=== PATIENT | female | born 1960 | race Caucasian/White ===

== ENCOUNTER → 2018-01-27 | Outpatient (CLI) | payer OTHER ==
[~2018-01-27] MED LIST: ADAL20KI2 SQ; CEP500 PO; CEPH500T7 PO; CIP500 PO; CIPR-344 PO; CIPR100T4 PO; CIPR250S2 PO; FAM20 PO; FAMO20TA28 PO; FEN145 PO; FENO48PT PO; FES4PT PO; FEXO180T74 PO; FEXO30TA36 PO; FLUO-201 PO; FLUO-202 PO; FOLI-68 PO; FOLTX PO; FURO40TA35 PO; GABA-490 PO; HYDR-385 PO; HYDR-389 PO; IBU600 PO; IBU800 PO; IBUP-1671 PO; LEVO200T44 PO; LEVO25TA56 PO; LEVO25TA61 PO; LEVO5PT PO; LOPE2CAP39 PO; LOR5/325 PO; MESA400T PO; METF-409 PO; METF-415 PO; METF10002 PO; METH2.5T43 PO; NOR25 PO; NORT50CA40 PO; OMEG-44 PO; OMEP-114 PO; OXY5 PO; OXYB10TA21 PO; OXYB5TAB86 PO; OXYC-717 PO; PAR20 PO; PAROX40PT PO; PHEN200T32 PO; PHENA200 PO; PRA20 PO; PRE5 PO; PRED20TA6 PO; SITA100T PO; SPIR1TAB28 PO; TRA50 PO
== END ==
LOC: SPU 15:39
DX: N30.01 Acute cystitis with hematuria (principal)
CPT/HCPCS: 51701

== ENCOUNTER 2018-02-03 00:52 | Inpatient (IN) | payer OTHER ==
[2018-02-02 14:55] LABS: INR 0.99
--- NOTE | 2018-02-02 16:34 | RADIOLOGY IMAGING REPORT ---
FACILITY: [facility] PATIENT NAME: Tessa Ellison : 1960 MR: [id number] V: [id number] EXAM DATE: ORDERING PHYSICIAN: HEBER GAYLE TECHNOLOGIST: Location: [facility] [place] Patient: Tessa Ellison : 1960 Visit/Account:[id number] Date of Sevice: 02/02/2018 Examination: Leg length. HISTORY: Preoperative evaluation for knee arthroplasty. COMPARISON: None. FINDINGS: The right lower extremity measures 87.9 cm with a right femur length of 46.9 cm and a right tibial le ngth of 40.4 cm. The left lower extremity measures 88.6 cm with a left femur length of 46.9 cm and a left tibial lengt h of 40.8 cm. There is medial compartment greater than lateral compartment osteoarthritis of both knees. IMPRESSION: 1. Leg lengths as above. Report Dictated By: Rome Riggins at 02/02/2018 4:22 PM Report E-Signed By: Rome Riggins at 02/02/2018 4:30 PM WSN:[id number]
[~2018-02-03] VITALS: Ht 172.7 cm; Wt 132.0 kg
[2018-02-03] VITALS (15 sets, daily range): BP systolic 105–150; BP diastolic 61–98
[2018-02-03] MEDS ORDERED: SCOPOLAMINE 1.5 MG PATCH TD ONE (05:30)
[2018-02-03] MEDS ORDERED: METH1TAB40 PO (05:45)
[2018-02-03] MEDS ORDERED: CEPH-13 PO (05:45)
[2018-02-03] MEDS ORDERED: HYDROCORTISONE 100 MG/2 ML IVP ONE (06:00)
[2018-02-03] MEDS ORDERED: cloNIDine EPIDUR INJ 100MCG/ML 40 MCG, ROPIVACAINE 0.5% 20 ML VIAL 25 ML, EPINEPHrine H... INJ ONE (06:15)
[2018-02-03] MEDS ORDERED: ACETAMINOPHEN 500 MG TAB PO ONE (06:15)
[2018-02-03] MEDS ORDERED: PREGABALIN 150 MG CAPSULE PO ONE (06:15)
[2018-02-03] MEDS ORDERED: TRANEXAMIC AC 1000 MG/10ML SDV 1,000 MG in DEXTROSE 5% 50 ML BAG 50 ML IV ONE (06:15)
[2018-02-03] MEDS ORDERED: LIDOCAINE/SOD BICARB 8.4% SYR ID ONE (06:15)
[2018-02-03] MEDS ORDERED: NORMOSOL R SOLN(*) 1000 ML BAG 1,000 ML IV PRN (06:15)
[2018-02-03] MEDS ORDERED: VANCOMYCIN(*) 1 GM VIAL 2 GM in NS(*) 0.9% 250 ML BAG 250 ML IVPB ONE (06:15)
[2018-02-03] MEDS ORDERED: CELECOXIB 200 MG CAP PO ONE (06:15)
[2018-02-03] MEDS ORDERED: MIDAZOLAM 2 MG/2 ML VIAL IVP PRN (06:15)
[2018-02-03] MEDS ORDERED: LIDOCAINE 2% IV 100 MG/5ML SYR ONE (07:07)
[2018-02-03] MEDS ORDERED: fentaNYL CITR 100 MCG/2 ML AMP ONE ×2 (07:07→08:41)
[2018-02-03] MEDS ORDERED: PROPOFOL EMUL(*) 10MG/ML 20 ML 20 ML ONE (07:08)
[2018-02-03] MEDS ORDERED: BUPIVACAINE 0.5% INJ 50ML VIAL INFIL ONE (07:30)
[2018-02-03] MEDS ORDERED: ONDANSETRON 4 MG/2 ML VIAL ONE (07:35)
[2018-02-03] MEDS ORDERED: DEXAMETHASONE SOD PHOS 10MG/ML ONE (07:35)
[2018-02-03] MEDS ORDERED: LABETALOL HCL 100 MG/20ML VIAL ONE (10:08)
[2018-02-03] MEDS ORDERED: ACETAMINOPHEN 500 MG TAB PO PRN (10:20)
[2018-02-03] MEDS ORDERED: KCL/D5LR 20 MEQ/1000 ML PREMIX 1,000 ML IV PRN (10:20)
[2018-02-03] MEDS ORDERED: diphenhydrAMINE 25 MG CAP PO PRN (10:20)
[2018-02-03] MEDS ORDERED: ONDANSETRON 4 MG/2 ML VIAL IVP PRN (10:20)
[2018-02-03] MEDS ORDERED: MORPHINE SULFATE 30 MG PCA IV PRN (10:20)
[2018-02-03] MEDS ORDERED: FLUSH 10 ML SYR IVP PRN (10:20)
[2018-02-03] MEDS ORDERED: PROMETHAZINE 25 MG/ML 1 ML AMP IVP PRN (10:20)
[2018-02-03] MEDS ORDERED: NALOXONE HCL 0.4 MG/ML VIAL IVP PRN (10:20)
[2018-02-03] MEDS ORDERED: MAGNESIUM CITRATE 300 ML BTL PO PRN (10:20)
--- NOTE | 2018-02-03 10:39 | RADIOLOGY IMAGING REPORT ---
FACILITY: [facility] [place] PATIENT NAME: Tessa Ellison : 1960 MR: [id number] V: [id number] EXAM DATE: ORDERING PHYSICIAN: HEBER GAYLE TECHNOLOGIST: Location: [facility] Patient: Tessa Ellison : 1960 Visit/Account:[id number] Date of Sevice: 02/03/2018 Left knee Indication: Total knee arthroplasty Comparison: MRI of the left knee from February 2007 Findings: Two views left knee demonstrate expected appearance status post left total knee arthroplasty. Compon ents are well seated and aligned appropriately. IMPRESSION: 1. Expected appearance status post left total knee arthroplasty. Report Dictated By: Casimiro Obrien MD at 02/03/2018 10:33 AM Report E-Signed By: Casimiro Obrien MD at 02/03/2018 10:34 AM WSN:[id number]
--- NOTE | 2018-02-03 12:48 | Hospitalist Consultation ---
History of Present Illness Requesting Physician Dr. Salcido Reason for Consult Medical Management Chief Complaint s/p right total knee replacement History of Present Illness She was admitted s/p right total knee replacement. It is reported the surgery went well and without complication. History Problems: (1) Lupus Status: Chronic (2) Rheumatoid arthritis Status: Chronic (3) Depression Status: Chronic (4) Hypothyroidism Status: Chronic Home Meds Reported Medications Cephalexin (KEFLEX) 500 Mg Capsule, 500 MG PO BID, #28 CAP 02/03/18 Methenam/Me Blue/Ba/Salicy/Hyo (HYOPHEN TABLET) 1 Each Tablet, 1 EACH PO PRN 02/03/18 Oxybutynin Chloride (DITROPAN XL) 10 Mg Tab.er.24, 15 MG PO QDAY, TAB 01/26/18 Prednisone 5 Mg Tab (PREDNISONE 5 MG TAB) 5 Mg Tablet, 5 MG PO QDAY, TAB 01/26/18 Fluoxetine Hcl (PROZAC) 20 Mg Capsule, 20 MG PO QDAY, CAPSULE 01/26/18 Sitagliptin Phosphate (JANUVIA) 100 Mg Tablet, 100 MG PO QDAY 01/26/18 Nortriptyline Hcl (NORTRIPTYLINE HCL) 50 Mg Capsule, 50 MG PO HS, CAPSULE 02/10/17 Adalimumab (HUMIRA) 20 Mg/0.4 Ml Kit, 20 MG SQ 2X/MONTH, KIT 02/10/17 Methotrexate Sodium (METHOTREXATE) 2.5 Mg Tablet, 10 TAB PO ONCE/WEEK ON Fridays02/10/17 Gabapentin (NEURONTIN) 300 Mg Capsule, 900 MG PO HS, CAPSULE 03/27/15 Levothyroxine Sodium (LEVOTHYROXINE SODIUM) 25 Mcg Tablet, 25 MCG PO QDAY 03/27/15 Discontinued Reported Medications Omeprazole (PRILOSEC) 20 Mg Capsule.dr, 1 TAB PO DAILY TAKE ONE TABLET BY MOUTH ONCE A DAY 12/19/14 Allergies: Coded Allergies: Wheat Flour (Verified Allergy, Intermediate, NAUSEA/VOMITING, 01/26/18) pollen extracts (Verified Allergy, Intermediate, ITCHING WITH EYES, ) meperidine (Verified Adverse Reaction, Severe, NAUSEA/VOMITING, 01/26/18) Uncoded Allergies: GENTAMYCIN (Allergy, Intermediate, WELTS, 02/02/18) Hx Smoking: No Smoking Status: Never Smoker Caffeine/Cups Per Day: NONE CURRENTLY Hx Alcohol Use: No Hx Substance Use Disorder: No Social Drug Use: Never History of IV Drug Use: No Review of Systems All Systems Reviewed/Normal: Yes, Except as Noted Exam Vital Signs Vital Signs Date Time Temp Pulse Resp B/P (MAP) Pulse Ox O2 Delivery O2 Flow Rate FiO2 02/03/18 12:00 93 121/88 (99) 94 02/03/18 11:16 Nasal Cannula 3.0 02/03/18 11:08 98.3 18 General Appearance: Alert, Awake, No Acute Distress, Afebrile Neuro: No Gross deficits Cardiovascular: Regular Rate and Rhythm Respiratory: No Respiratory Distress, Clear to Auscultation GI: Abd Soft and Non-Tender Psych: Alert & Oriented X3, Appropriate Mood & Affect Medical Decision Making Data Points Result Diagram: 02/03/18 1051 Assessment and Plan Problems: (1) Status post total right knee replacement Status: Acute Assessment & Plan: Followed by Dr. Salcido. (2) Lupus Status: Chronic Assessment & Plan: She is on chronic treatment with Humira and prednisone. Prednisone will be restarted tomorrow. We will stress dose the patient today with hydrocortisone for three doses and then restart her Prednisone. (3) Rheumatoid arthritis Status: Chronic Assessment & Plan: She is on chronic treatment with Methotrexate. This will be held until full healing from her surgery. (4) Hypothyroidism Status: Chronic Assessment & Plan: She is on chronic treatment with Levothyroxine. (5) Depression Status: Chronic Assessment & Plan: She is on chronic treatment with Prozac and Nortriptyline. (6) Elevated glucose Assessment & Plan: She is on chronic treatment with Januvia. (7) BMI 40.0-44.9, adult Venous Thromboembolism Antithrombotics Is Pt On Any Antithrombotics?: No Exam Sepsis Risk: No Definite Risk BILLY GARCIA [facility] Feb 03, 2018 12:48
[2018-02-03] MEDS: HYDROCORTISONE 100 MG/2 ML IVP SCH (16:39)
[2018-02-03] MEDS: NORTRIPTYLINE HCL 25 MG CAP PO SCH (20:40)
[2018-02-03] MEDS: GABAPENTIN 300 MG CAP PO SCH (20:40)
[2018-02-03] MEDS ORDERED: INSULIN HUM LISPRO 100 UN/ML 3 ML VIAL SUBQ PRN (23:40)
[2018-02-04] MEDS: HYDROCORTISONE 100 MG/2 ML IVP SCH ×2 (01:05→08:50)
[2018-02-04 04:15] VITALS: BP 125/79
[2018-02-04 05:38] LABS: PLATELET COUNT, AUTOMATED 297 K/uL (150-450)
--- NOTE | 2018-02-04 08:02 | OPERATIVE REPORT 1 ---
EVENT DATE: February 03, 2018 SURGEON: Alfred Salcido M.D. ANESTHESIOLOGIST: Cyrus Gallagher M.D. ANESTHESIA: Spinal plus general office assistant: Sai Beasley PA-C PREOPERATIVE DIAGNOSIS Left knee degenerative joint disease (DJD). POSTOPERATIVE DIAGNOSIS Left knee degenerative joint disease (DJD). PROCEDURE PERFORMED Left total knee arthroplasty. ESTIMATED BLOOD LOSS 50 IVF, 1800 of crystalloid, no colloid. SPECIMENS None. COMPLICATIONS None. TOURNIQUET TIME 79 at 300. IMPLANTS USED DePuy Attune 7 PS femur at 6 degrees with six RP tibia with a 6 mm RP insert and 35 anatomic patella. DESCRIPTION OF PROCEDURE The patient was brought to the operating room. She was placed on the OR table seated and Dr. Gallagher undertook a spinal anesthetic. He elected not to use any morphine so the synergistic effect would not be too great to prevent ambulation today. It was quite challenging to get into the spine in this particular case and, therefore, our start time was delayed a bit on account of this but Dr. Gallagher was able to get a good spinal effect. We then prepped and draped in a standard fashion. The limb was exsanguinated and the tourniquet was inflated to 300 mmHg. A utilitarian and anterior incision was made deep into skin and subcutaneous tissue. This was followed by medial peripatellar approach. The fluid was clear. We dissected soft tissues away from the anterior femur as well as removing the ACL and patellofemoral ligament. We removed the menisci. We obtained intramedullary guidance and then set up for a 6 degree cut, removing 9 mm off the end of the femur. This was accomplished and we measured to 7. We then did the rest of the chamfer cuts and removed this tissue. She was quite tight. It was difficult to get the gauge in to see if it would fit well but it looked like the femoral cuts were properly parallel and , therefore, we did put the trial on. It seated and, therefore, we drilled the lugs. We had also done the notch cut. We now moved to the tibia. Again, intramedullary guidance was obtained and I cut 2 mm below the deficient medial side, which was about 9 mm below the articular surface laterally. It turns out that this was insufficient in terms of the amount of bone removed because after trialing with a size 6 it was a bit too tight. We dropped down 2 mm, tried again with the flexion and extension block and it was still tight both in extension and flexion so we went down a total of an additional 4 mm on the tibia and at that point we were able to get the [address] I extended. At first, she settled in at about 15 degrees of flexion contracture but when I pushed on it a little bit the posterior capsule contracture and then we were able to get her locked into nice extension. She had good stability medial and lateral at 0 degrees and at 20 degrees. We then proceeded with the rest of the preparation. A small drill was used to fenestrate the bone where it was eburnated. We mixed cement, opened implants and then proceeded with the tibia, followed by the femur, the trial insert and then the patella. The patella had previously been prepped in standard fashion by using a gauge to measure the total thickness, which was 22. I cut a little less than the 9.5 off that we normally would, leaving her with 14 mm of patella. She fit well with a 35. We drilled the lug holes and at this point in the cementation process the patella was the last one to be cemented. Excess cement was removed from all surfaces. She was held locked and loaded during polymerization of the cement and upon completion we ranged her and checked her function again. The 5 mm x 7 insert actually fit fairly well. However, in mid flexion there was just a little bit of play, a bit more than the 1-2 mm we would like to see. Consequently, I trialed a 6 and she still had full extension and it fit quite well. We opened a 6 and implanted that. The wound was irrigated again as it had been throughout the case. We had also used the cement spacer blocks that went into the femur and the tibia to allow for better compression on the cement mantle. With the tourniquet deflated, bipolar cautery was used for hemostasis. We administered the second dose of TXA on tourniquet deflation. We then closed with #1 Vicryl for the capsule, 3-0 Vicryl for the subcutaneous tissue, 4-0 Monocryl for the subcuticular layer and the Dermabond strip was applied. She was given a dry, sterile compression dressing , awakened and transferred to the recovery room in stable condition. JANE
[2018-02-04] MEDS: ASPIRIN 325 MG TAB PO SCH (08:46)
[2018-02-04] MEDS: FLUoxetine HCL 20 MG CAP PO SCH (08:46)
[2018-02-04] MEDS: LEVOTHYROXINE SOD 0.025 MG TAB PO SCH (08:46)
[2018-02-04] MEDS: predniSONE 5 MG TAB PO SCH (08:46)
--- NOTE | 2018-02-04 10:39 | Hospitalist Progress Note ---
Subjective Progress Notes Subjective No cp/sob. Physical Exam Vital Signs Date Time Temp Pulse Resp B/P (MAP) Pulse Ox O2 Delivery O2 Flow Rate FiO2 02/04/18 08:08 97 Nasal Cannula 3.0 02/04/18 04:15 98.6 95 16 125/79 (94) Intake and Output 02/05/18 06:59 Intake Total 120 ml Balance 120 ml Intake Oral 120 ml General Appearance: Alert, Awake, No Acute Distress Result Diagram: 02/04/18 0526 Assessment and Plan Problems: (1) Status post total right knee replacement Status: Acute Assessment & Plan: Followed by Dr. Salcido. (2) Lupus Status: Chronic Assessment & Plan: She is on chronic treatment with Humira and prednisone. Prednisone restarted. She was stress dosed with hydrocortisone for three doses after surgery. (3) Rheumatoid arthritis Status: Chronic Assessment & Plan: She is on chronic treatment with Methotrexate. This will be held until full healing from her surgery. (4) Hypothyroidism Status: Chronic Assessment & Plan: She is on chronic treatment with Levothyroxine. (5) Depression Status: Chronic Assessment & Plan: She is on chronic treatment with Prozac and Nortriptyline. (6) Elevated glucose Assessment & Plan: She is on chronic treatment with Januvia. (7) BMI 40.0-44.9, adult Exam Sepsis Risk: No Definite Risk SAM NOGUERA MD Feb 04, 2018 10:39
[2018-02-04] MEDS: CEPHALEXIN MONO 500 MG CAP PO SCH ×2 (10:53→20:51)
[2018-02-04 13:17] VITALS: Ht 172.7 cm; Wt 132.0 kg
[2018-02-04 14:53] VITALS: BP 144/92
[2018-02-04] MEDS: GABAPENTIN 300 MG CAP PO SCH (20:52)
[2018-02-04] MEDS: NORTRIPTYLINE HCL 25 MG CAP PO SCH (20:52)
[2018-02-05 03:44] VITALS: BP 114/73
[2018-02-05 08:17] LABS: PLATELET COUNT, AUTOMATED 250 K/uL (150-450)
[2018-02-05] MEDS: ASPIRIN 325 MG TAB PO SCH (08:38)
[2018-02-05] MEDS: LEVOTHYROXINE SOD 0.025 MG TAB PO SCH (08:38)
[2018-02-05] MEDS: predniSONE 5 MG TAB PO SCH (08:38)
[2018-02-05] MEDS: CEPHALEXIN MONO 500 MG CAP PO SCH (08:38)
[2018-02-05] MEDS: FLUoxetine HCL 20 MG CAP PO SCH (08:39)
[2018-02-05 08:45] VITALS: BP 124/84
[2018-02-05] MEDS ORDERED: OXYC5TAB38 PO (09:29)
--- NOTE | 2018-02-05 09:54 | Hospitalist Progress Note ---
Subjective Progress Notes Subjective The patient had some diarrhea this am. She feels fine and would like to go home. Physical Exam Vital Signs Date Time Temp Pulse Resp B/P (MAP) Pulse Ox O2 Delivery O2 Flow Rate FiO2 02/05/18 08:45 97.7 15 124/84 (97) 02/05/18 03:44 87 94 CPAP 3.0 Intake and Output 02/06/18 06:59 Intake Total 240 ml Balance 240 ml Intake Oral 240 ml General Appearance: Alert, Awake, No Acute Distress, Afebrile Neuro: No Gross deficits Cardiovascular: Regular Rate and Rhythm Respiratory: Clear to Auscultation GI: Soft and Non-Tender Extremities: Perfused Psych: Appropriate Mood & Affect Result Diagram: 02/05/18 07502/05/18 075 Assessment and Plan Problems: (1) Status post total right knee replacement Status: Acute Assessment & Plan: Followed by Dr. Salcido. On ASA 325mg daily for DVT prophylaxis. (2) Lupus Status: Chronic Assessment & Plan: She is on chronic treatment with Humira and prednisone. Prednisone restarted. She was stress dosed with hydrocortisone for three doses after surgery. (3) Rheumatoid arthritis Status: Chronic Assessment & Plan: She is on chronic treatment with Methotrexate. This will be held until full healing from her surgery. (4) Hypothyroidism Status: Chronic Assessment & Plan: She is on chronic treatment with Levothyroxine. (5) Depression Status: Chronic Assessment & Plan: She is on chronic treatment with Prozac and Nortriptyline. (6) Elevated glucose Assessment & Plan: She is on chronic treatment with Januvia. (7) BMI 40.0-44.9, adult Status: Chronic Time Spent on Plan of Care: < 30 min Exam Sepsis Risk: No Definite Risk RASHAAD LANZA MD Feb 05, 2018 09:54
[2018-02-05] MEDS ORDERED: ASPI-757 PO (09:55)
== END 2018-02-05 11:30 | disposition home or self-care (01) | DRG 470 ==
LOC: OR 00:52 → MED 11:10
PROVIDERS: ADMIT Orthopaedic Surgery Hand Surgery; ATTEND Orthopaedic Surgery Hand Surgery
PROC: 5A09357 Assistance with Respiratory Ventilation, Less than 24 Consecutive Hours, Continuous Positive Airway Pressure (ICD-10-PCS; 2018-02-03)
PROC: 0SRD0J9 Replacement of Left Knee Joint with Synthetic Substitute, Cemented, Open Approach (ICD-10-PCS; principal; 2018-02-03 07:15)
DX: M17.12 Unilateral primary osteoarthritis, left knee (principal); Z68.41 Body mass index [BMI] 40.0-44.9, adult; M32.9 Systemic lupus erythematosus, unspecified; E66.01 Morbid (severe) obesity due to excess calories; I10 Essential (primary) hypertension; G47.33 Obstructive sleep apnea (adult) (pediatric); E28.2 Polycystic ovarian syndrome; M06.9 Rheumatoid arthritis, unspecified; E11.9 Type 2 diabetes mellitus without complications; F32.9 Major depressive disorder, single episode, unspecified; E03.9 Hypothyroidism, unspecified; Z99.81 Dependence on supplemental oxygen; Z79.84 Long term (current) use of oral hypoglycemic drugs; Z98.1 Arthrodesis status
CPT/HCPCS: 36415; 36416; 77073; 81001; 82310; 82374; 82435; 82565; 82947; 82948; 84132; 84295; 84520; 85014; 85018; 85025; 85610; 86850; 86900; 86901; 87088; 97161; C1713; C1776; J0171; J0735; J1100; J1720; J1885; J2001; J2250; J2405; J2704; J2795; J3010; J3370; J3490; J7050; J7060; J7512

== ENCOUNTER → 2018-03-08 | Outpatient (CLI) | payer OTHER ==
[2018-02-04 13:17] VITALS: BMI 44.2
[~2018-03-08] MED LIST changes: +ASPI-757 PO; +CEPH-13 PO; +METH1TAB40 PO; +OXYC5TAB38 PO
== END ==
LOC: LAB 15:14
PROVIDERS: ATTEND Otolaryngology Otolaryngology/Facial Plastic Surgery
DX: J30.9 Allergic rhinitis, unspecified (principal)
CPT/HCPCS: 36415; 82785; 86003

== ENCOUNTER → 2018-03-31 | Outpatient (CLI) | payer OTHER ==
[2018-02-04 13:17] VITALS: BMI 44.2
== END ==
LOC: LAB 14:31
PROVIDERS: ATTEND Internal Medicine
DX: D72.829 Elevated white blood cell count, unspecified (principal)
CPT/HCPCS: 36415; 85027

== ENCOUNTER 2018-07-07 02:45 | Inpatient (IN) | payer OTHER ==
[2018-07-06 13:59] LABS: INR 0.99
[~2018-07-07] VITALS: Ht 172.7 cm; Wt 131.5 kg
[2018-07-07] MEDS ORDERED: ACETAMINOPHEN 500 MG TAB PO ONE (11:30)
[2018-07-07] MEDS ORDERED: LIDOCAINE/SOD BICARB 8.4% SYR ID ONE (11:30)
[2018-07-07] MEDS ORDERED: ceFAZolin(*) 2GM/D5W 50ML 50 ML IVPB ONE (11:30)
[2018-07-07] MEDS ORDERED: MIDAZOLAM 2 MG/2 ML VIAL IVP PRN (11:30)
[2018-07-07] MEDS ORDERED: cloNIDine EPIDUR INJ 100MCG/ML 40 MCG, ROPIVACAINE 0.5% 20 ML VIAL 25 ML, EPINEPHrine H... INJ ONE (11:30)
[2018-07-07] MEDS ORDERED: CELECOXIB 200 MG CAP PO ONE (11:30)
[2018-07-07] MEDS ORDERED: NORMOSOL R SOLN(*) 1000 ML BAG 1,000 ML IV PRN (11:30)
[2018-07-07] MEDS ORDERED: FAMOTIDINE 20 MG TAB PO ONE (11:30)
[2018-07-07] MEDS ORDERED: PREGABALIN 150 MG CAPSULE PO ONE (11:30)
[2018-07-07] MEDS ORDERED: TRANEXAMIC AC 1000 MG/10ML SDV 1,000 MG in DEXTROSE 5% 50 ML BAG 50 ML IV ONE (11:30)
[2018-07-07 15:30] VITALS: BP 144/89
[2018-07-07] MEDS ORDERED: PHENYLEPHRINE 10 MG/1 ML VIAL ONE (20:08)
[2018-07-07] MEDS ORDERED: ROPIVACAINE 0.5% 20 ML VIAL ONE (20:08)
[2018-07-07] MEDS ORDERED: PROPOFOL EMUL(*) 10MG/ML 20 ML 120 ML ONE (20:08)
[2018-07-07] MEDS ORDERED: MAGNESIUM CITRATE 300 ML BTL PO PRN (20:40)
[2018-07-07] MEDS ORDERED: KCL/D5LR 20 MEQ/1000 ML PREMIX 1,000 ML IV PRN (20:40)
[2018-07-07] MEDS ORDERED: ACETAMINOPHEN 500 MG TAB PO PRN (20:40)
[2018-07-07] MEDS ORDERED: diphenhydrAMINE 25 MG CAP PO PRN (20:40)
[2018-07-07] MEDS ORDERED: ONDANSETRON 4 MG/2 ML VIAL IVP PRN (20:40)
[2018-07-07] MEDS ORDERED: FLUSH 10 ML SYR IVP PRN (20:40)
[2018-07-07] MEDS ORDERED: NALOXONE HCL 0.4 MG/ML VIAL IVP PRN (20:40)
[2018-07-07] MEDS ORDERED: MORPHINE SULFATE 30 MG PCA IV PRN (20:40)
[2018-07-07] MEDS ORDERED: PROMETHAZINE 25 MG/ML 1 ML AMP IVP PRN (20:40)
[2018-07-07 21:35] VITALS: BP 138/83
--- NOTE | 2018-07-07 21:48 | Hospitalist Progress Note ---
Subjective Progress Notes Subjective Patient seen post-op. Reviewed PMHx and medications. At present she reports doing well. Pain well controlled. No CP/SOB/N/V. Physical Exam Vital Signs Date Time Temp Pulse Resp B/P (MAP) Pulse Ox O2 Delivery O2 Flow Rate FiO2 07/07/18 21:15 85 16 93 07/07/18 15:30 98.2 144/89 (107) Room Air General Appearance: Alert, Awake Cardiovascular: Regular Rate and Rhythm Respiratory: Clear to Auscultation Result Diagram: 07/07/182033 Assessment and Plan Problems: (1) Status post left knee replacement Status: Acute Assessment & Plan: She appears to have done well with OR/anesthesia. She has no history of DVT/PE. She will be on aspirin for prophylaxis. (2) Hypothyroidism Status: Chronic Assessment & Plan: Continue replacement with L-thyroxine. (3) Elevated glucose Status: Chronic Assessment & Plan: Will place on ADA diet. Continue Januvia. Watch glucoses and use SSI as needed. (4) Depression Status: Chronic Assessment & Plan: Continue Prozac. (5) Rheumatoid arthritis Status: Chronic Assessment & Plan: She has been managed with Humira, MTX, and low dose prednisone. Will use stress dose Solu-Cortef and then transition back to prednisone. She has held her MTX and Humira for the past two weeks and will hold an additional two weeks post-op. (6) BMI 40.0-44.9, adult Status: Chronic JOSE LANZA MD Jul 07, 2018 21:48
[2018-07-07] MEDS ORDERED: INSULIN HUM LISPRO 100 UN/ML 3 ML VIAL SUBQ PRN (21:50)
[2018-07-07] MEDS ORDERED: HYDROCORTISONE 100 MG/2 ML IVP ONE (21:50)
[2018-07-07 22:15] VITALS: BP 109/72
[2018-07-07 23:00] VITALS: BP 143/79
--- NOTE | 2018-07-07 23:03 | OPERATIVE REPORT 1 ---
EVENT DATE: July 07, 2018 SURGEON: Alfred Salcido MD ANESTHESIOLOGIST: Delmer Sparrow MD ANESTHESIA: General anesthetic including spinal and adductor canal block. General anesthetic was done with a propofol pump. POWDER LINE REPAIRER: KELSEY Cornejo PREOPERATIVE DIAGNOSIS Right knee degenerative joint disease. POSTOPERATIVE DIAGNOSIS Right knee degenerative joint disease. PROCEDURE PERFORMED Right total knee arthroplasty (75369). INTRAVENOUS FLUIDS Crystalloid 2200. Colloid none. ESTIMATED BLOOD LOSS 75 TOURNIQUET TIME 68 COMPLICATIONS No complications. IMPLANTS USED DePuy Attune 6 narrow right PS, 35 anatomic patella, 6 x 8 mm insert, and 6 rotating platform tibia. SUMMARY OF PROCEDURE The patient was brought into the operating room and placed on the OR table in the supine position. She was given the adductor canal block and a spinal. The spinal for whatever reason seemed to go quite a bit easier than her other side, but they did use a different needle knowing that it was going to be a challenge. She was then given a light general anesthetic, and her right lower extremity was prepped and draped in the usual sterile fashion. The limb was exsanguinated, and the tourniquet was inflated to 300 mmHg. A utilitarian longitudinal incision was made, deepened through skin and subcutaneous tissue, followed by a medial parapatellar approach. The fluid was clear. The ACL was divided. The fat pad was resected. It was an extremely dense fat pad that was very firm, and this was true of much of her subcutaneous fatty tissue, which was a little atypical. The patellofemoral ligament was divided. We then stripped the synovium off the anterior femur so we could check the lateral ridge for sizing. Based on her long leg plate films, we selected a slightly medialized starting point at the notch and then cut for a 6-degree angle. We cut 9 mm off the end even though she did have a flexion contracture. My intent was to correct this by releasing the posterior capsule. We then did the cutting blocks after measuring for a 6 and did our various cuts. I was going to do the drill holes, but there was still some soft tissue posteriorly that was slightly minimizing the opportunity of the trial to go all the way flat. Therefore, I waited until we finished the tibia. We did move to the tibia. Posterior and lateral retractors were placed. Intramedullary guidance was obtained on the tibia, and then we cut, measuring initially 2 mm below the deficient medial side, but that did not quite bring it down low enough on the lateral side since it was not 9 mm below the cartilage, so I did drop it just a little bit more and then made our cut. This did ultimately require a slightly thicker insert, but it did seem to fit well for her. Once the cut was made, since we were doing a rotating platform insert, I did not endeavor to specifically rotate the tibial implant for the tibial torsion, but instead matched it to the cut surface, and then we would select a 6, but temporarily we did remove it before seating it. We placed the suitcase handle retractor and then elevated the femur. At this point, we did remove the posterior soft tissues. She had quite a large piece of bone laterally which was taken off with an osteotome and then graspers. We stripped the posterior portion of the capsule with an osteotome and then also removed the osteophytes posteriorly on the medial femur. Once this was done, we returned to completion of the tibial preparation and then trialed. At this point, everything did fit nicely, so we did place the lug drills, and then we sized the patella, measured 24. We cut with a 9.5 joshua and then selected a 35, drilling the lug holes for this as well. With all trials in place, she came to nice extension. She had reasonably good stability, but still very slight play with the 6 mm insert, so we planned on going with an 8 for the final. The trials were removed. Everything was irrigated. We did drill with the 1.5 drill where necessary for eburnation. We mixed cemented, placed cement blocks at the femur and the tibia, and then injected cement into the rotating platform tibial hole as well as on the underside of the tibial implant and then inserted this under pressure. Excess cement was removed. We placed the temporary 6 mm insert. We then went to the femur, again compressed it, removed cement, and the locked and loaded, removing a little bit more cement at this time. The patella was secured with a clamp. Excess cement was removed, and we waited until full polymerization. The tourniquet was deflated at 68 minutes. The cocktail of local anesthetic had been given into the capsule, and now some additional was given into the quad. We did trial with the 8. It fit well, so we selected that as the final. We placed the final insert and then tested again to make sure she had full extension and good stability with varus and valgus stress at 20 degrees of flexion. It did not have any tendency to subluxate in full flexion. A final irrigation of the wound was followed by closure of the medial parapatellar arthrotomy with #1 Vicryl, followed by repeat irrigation, and then 3-0 Vicryl for subcutaneous tissue and 4-0 Monocryl for skin with a Dermabond strip applied. She was then given a dry, sterile dressing and then a compression Willem bandage, followed by waking and transfer to the recovery room. JANE
[2018-07-07 23:30] VITALS: BP 136/91
[2018-07-08] VITALS (9 sets, daily range): BP systolic 122–155; BP diastolic 75–99; Ht 172.7 cm; Wt 131.5 kg
[2018-07-08] MEDS: LEVOTHYROXINE SOD 0.025 MG TAB PO SCH (06:01)
[2018-07-08 06:08] LABS: PLATELET COUNT, AUTOMATED 374 K/uL (150-450)
--- NOTE | 2018-07-08 08:22 | RADIOLOGY IMAGING REPORT ---
FACILITY: [facility] PATIENT NAME: Tessa Ellison : 1960 MR: [id number] V: [id number] EXAM DATE: ORDERING PHYSICIAN: HEBER GAYLE TECHNOLOGIST: Location: [facility] Patient: Tessa Ellison : 1960 Visit/Account:[id number] Date of Sevice: 07/07/2018 KNEE LIMITED RIGHT History: Postop right knee. Comparison study: February 03, 2018 left knee. Findings: There has been recent placement of a right total knee prosthesis. Subcutaneous air and int ra-articular air are related to recent surgery. There is no fracture. There is a joint effusion and s oft tissue swelling. IMPRESSION: Status post recent right total knee replacement. Residual joint effusion, soft tissue swe lling and air noted. No fracture. Report Dictated By: Nazario Campo MD at 07/08/2018 8:17 AM Report E-Signed By: Nazario Campo MD at 07/08/2018 8:18 AM WSN:[id number]
[2018-07-08] MEDS: OXYBUTYNIN CHL XL 5 MG TABCR PO SCH (08:26)
[2018-07-08] MEDS: FLUoxetine HCL 20 MG CAP PO SCH (08:26)
[2018-07-08] MEDS: HYDROCORTISONE 100 MG/2 ML IVP SCH ×2 (08:26→20:23)
[2018-07-08] MEDS: ASPIRIN 325 MG TAB PO SCH (08:26)
--- NOTE | 2018-07-08 08:32 | Hospitalist Progress Note ---
Subjective Progress Notes Subjective She reports some surgical site pain and mild nausea. Physical Exam Vital Signs Date Time Temp Pulse Resp B/P (MAP) Pulse Ox O2 Delivery O2 Flow Rate FiO2 07/08/18 06:54 98.5 87 16 122/77 (92) 93 Nasal Cannula 0.5 Intake and Output 07/08/18 06:59 Intake Total 7600 ml Output Total 75 ml Balance 7525 ml Intake Oral 600 ml IV Total 4600 ml Other 2400 ml Output Estimated Blood Loss 75 ml # Voids 5 # Bowel Movements 1 General Appearance: Alert, Awake Cardiovascular: Regular Rate and Rhythm Respiratory: Clear to Auscultation Result Diagram: 07/08/18 0522 Assessment and Plan Problems: (1) Status post left knee replacement Status: Acute Assessment & Plan: She appears to be stable post-op. She has no history of DVT/PE. She will be on aspirin for prophylaxis. (2) Hypothyroidism Status: Chronic Assessment & Plan: Continue replacement with L-thyroxine. (3) Elevated glucose Status: Chronic Assessment & Plan: She is on an ADA diet. Continue Januvia. Watch glucoses and use SSI as needed. (4) Depression Status: Chronic Assessment & Plan: Continue Prozac. (5) Rheumatoid arthritis Status: Chronic Assessment & Plan: She has been managed with Humira, MTX, and low dose prednis one. Will use stress dose Solu-Cortef through today and then transition back to prednisone 5mg PO daily starting tomorrow AM. She has held her MTX and Humira for the past two weeks and will hold an additional two weeks post-op. (6) BMI 40.0-44.9, adult Status: Chronic Exam Sepsis Risk: No Definite Risk JOSE LANZA MD Jul 08, 2018 08:32
[2018-07-08] MEDS ORDERED: OMEP-137 PO (17:39)
[2018-07-08] MEDS: PANTOPRAZOLE SOD 40 MG TABEC PO SCH (17:57)
[2018-07-08] MEDS ORDERED: NORTRIPTYLINE HCL 10 MG CAP PO SCH (21:00)
[2018-07-08] MEDS ORDERED: GABAPENTIN 300 MG CAP PO SCH (21:00)
[2018-07-08] MEDS ORDERED: NORTRIPTYLINE HCL 25 MG CAP PO SCH (21:00)
[2018-07-09 02:27] VITALS: BP 164/89
[2018-07-09] MEDS: LEVOTHYROXINE SOD 0.025 MG TAB PO SCH (05:23)
[2018-07-09 06:11] LABS: PLATELET COUNT, AUTOMATED 371 K/uL (150-450)
--- NOTE | 2018-07-09 07:44 | Hospitalist Progress Note ---
Subjective Progress Notes Subjective The patient denies new complaints. Physical Exam Vital Signs Date Time Temp Pulse Resp B/P (MAP) Pulse Ox O2 Delivery O2 Flow Rate FiO2 07/09/18 02:27 98.9 94 18 164/89 (114) 93 Nasal Cannula 3.0 Intake and Output 07/09/18 06:59 Intake Total 1190 ml Balance 1190 ml Intake Oral 1190 ml # Voids 4 General Appearance: Alert, Awake, No Acute Distress Neuro: No Gross deficits Eyes: PERRLA Cardiovascular: Regular Rate and Rhythm Respiratory: No Respiratory Distress, Clear to Auscultation GI: Soft and Non-Tender Extremities: Warm, Perfused Psych: Appropriate Mood & Affect Result Diagram: 07/09/1852 07/09/18551 Assessment and Plan Problems: (1) Status post left knee replacement Status: Acute Assessment & Plan: She appears to be stable post-op. She has no history of DVT/PE. She will be on aspirin for prophylaxis. (2) Hypothyroidism Status: Chronic Assessment & Plan: Continue replacement with L-thyroxine. (3) Elevated glucose Status: Chronic Assessment & Plan: She is on an ADA diet. Continue Januvia. Watch glucoses and use SSI as needed. (4) Depression Status: Chronic Assessment & Plan: Continue Prozac. (5) Rheumatoid arthritis Status: Chronic Assessment & Plan: She has been managed with Humira, MTX, and low dose prednisone. Will use stress dose Solu-Cortef through today and then transition back to prednisone 5mg PO daily starting tomorrow AM. She has held her MTX and Humira for the past two weeks and will hold an additional two weeks post-op. (6) BMI 40.0-44.9, adult Status: Chronic (7) Increased oxygen demand Status: Acute Assessment & Plan: The patient uses CPAP regularly but is not on daytime O2 at home. Her O2 requirements have increased overnight. She did have low grade fever at 99.6. WBC increased slightly as well. She denies cough but states she feels "dry". Will order CXR for further evaluation. If negative, she may need to discharge on O2 and follow up with her PCP in [place] next week. Time Spent on Plan of Care: < 30 min Exam Sepsis Risk: No Definite Risk RASHAAD LANZA MD Jul 09, 2018 07:44
[2018-07-09 08:12] VITALS: BP 142/77
[2018-07-09] MEDS ORDERED: OXYC5TAB38 PO (08:29)
[2018-07-09] MEDS: OXYBUTYNIN CHL XL 5 MG TABCR PO SCH (08:38)
[2018-07-09] MEDS: ASPIRIN 325 MG TAB PO SCH (08:39)
[2018-07-09] MEDS: PANTOPRAZOLE SOD 40 MG TABEC PO SCH (08:39)
[2018-07-09] MEDS: FLUoxetine HCL 20 MG CAP PO SCH (08:39)
[2018-07-09] MEDS ORDERED: predniSONE 5 MG TAB PO SCH (09:00)
--- NOTE | 2018-07-09 09:54 | RADIOLOGY IMAGING REPORT ---
FACILITY: [facility] PATIENT NAME: Tessa Ellison : 1960 MR: [id number] V: [id number] EXAM DATE: ORDERING PHYSICIAN: RASHAAD LANZA TECHNOLOGIST: Location: [facility] [place] Patient: Tessa Ellison : 1960 Visit/Account:[id number] Date of Sevice: 07/09/2018 CHEST PA AND LAT HISTORY: Fever. Elevated white blood cell count. Hypoxemia. COMPARISON: Chest x-ray March 27, 2015. FINDINGS: Cardiomediastinal contours: The heart size is normal. Lungs and pleura: There is no finding of an infiltrate, lymphadenopathy or pleural effusion. There is mild hyperinflation of the lungs. Bones/soft tissues: There are no findings of a fracture. IMPRESSION: 1. Mild hyperinflation of the lungs. 2. No active disease in the chest. Report Dictated By: Nazario Campo MD at 07/09/2018 9:48 AM Report E-Signed By: Nazario Campo MD at 07/09/2018 9:49 AM WSN:[id number]
[2018-07-09 11:52] VITALS: BP 142/84
[2018-07-09 15:46] VITALS: BP 149/77
== END 2018-07-09 17:25 | disposition home or self-care (01) | DRG 470 ==
LOC: OR 02:45 → MED 21:32
PROVIDERS: ADMIT Orthopaedic Surgery Hand Surgery; ATTEND Orthopaedic Surgery Hand Surgery
PROC: 0SRC0J9 Replacement of Right Knee Joint with Synthetic Substitute, Cemented, Open Approach (ICD-10-PCS; principal; 2018-07-07 18:30)
DX: M17.0 Bilateral primary osteoarthritis of knee (principal); Z68.41 Body mass index [BMI] 40.0-44.9, adult; G47.33 Obstructive sleep apnea (adult) (pediatric); K21.9 Gastro-esophageal reflux disease without esophagitis; K58.9 Irritable bowel syndrome, unspecified; M06.9 Rheumatoid arthritis, unspecified; E03.9 Hypothyroidism, unspecified; E11.9 Type 2 diabetes mellitus without complications; F32.9 Major depressive disorder, single episode, unspecified; E28.2 Polycystic ovarian syndrome; E66.01 Morbid (severe) obesity due to excess calories; Z99.81 Dependence on supplemental oxygen; Z79.84 Long term (current) use of oral hypoglycemic drugs
CPT/HCPCS: 36415; 36416; 71046; 82310; 82374; 82435; 82565; 82947; 82948; 84132; 84295; 84520; 85014; 85018; 85025; 85610; 86850; 86900; 86901; 97161; C1713; C1776; J0171; J0690; J0735; J1720; J1885; J2370; J2704; J2795; J7050; J7060; J7512